=== PATIENT | female | born 1975 | race Caucasian/White ===

== ENCOUNTER 2016-11-13 23:37 | Emergency (ER) | payer OTHER ==
[~2016-11-13] VITALS: Ht 175.3 cm; Wt 72.6 kg
[~2016-11-13 23:37] MED LIST: ALBU17AE26 IH; ALPR0.2583 PO
--- NOTE | 2016-11-13 23:40 | NUR ---
Patient to ER bed 8 to gown for evaluation. Side rails up. Report given to Altagracia DARNELL.
[2016-11-13 23:45] VITALS: BP 135/88; PULSE 82; RESP 16; TEMP 97.8; O2SAT 98
--- NOTE | 2016-11-13 23:52 | NUR ---
Patient to ER C/O UTI symptoms, pain with urination /10, frequency and feeling hot. Patient states in the last 24 hours symptoms have been severe. AAOx4, unlabored breathing, no signs of acute distress.
--- NOTE | 2016-11-14 00:02 | NUR ---
ER MD Arevalo at bedside for evaluation
[2016-11-14 00:17] LABS: BILIRUBIN,URINE NEGATIVE (NEGATIVE); BLOOD, URINE 3+ (NEGATIVE); CLARITY/URINE CLOUDY (CLEAR); COLOR,URINE YELLOW (YELLOW); GLUCOSE,URINE NEGATIVE (NEGATIVE); KETONES,URINE NEGATIVE (NEGATIVE); LEUKOCYTE ESTERASE ,URINE 1+ (NEGATIVE); NITRITE, URINE NEGATIVE (NEGATIVE); PROTEIN URINE 2+ (NEGATIVE); UROBILINOGEN,URINE 0.2 (0.2-1.0)
[2016-11-14 00:35] LABS: BACTERIA,URINE MODERATE /HPF (None Seen); MUCUS,URINE None Seen /LPF (None Seen); RBC,URINE >100 /HPF (0-3); WBC,URINE 20-50 /HPF (0-3)
[2016-11-14 00:55] VITALS: BP 130/80; PULSE 82; RESP 16; TEMP 97.8; O2SAT 98
--- NOTE | 2016-11-14 00:55 | NUR ---
Patient given written and verbal discharge instructions and verbalizes understanding. ER MD discussed with patient the results and treatment provided. Patient in stable condition. ID arm band removed. Rx of levaquin, pyridium, and diflucan given. Patient educated on pain management and to follow up with PMD. Pain Scale 0/10 . Opportunity for questions provided and answered.
== END 2016-11-14 00:55 | disposition home or self-care (01) ==
LOC: SED 23:37
DX: N30.90 Cystitis, unspecified without hematuria (principal); J45.909 Unspecified asthma, uncomplicated; F41.9 Anxiety disorder, unspecified; F17.200 Nicotine dependence, unspecified, uncomplicated; Z88.1 Allergy status to other antibiotic agents
CPT/HCPCS: 81000-TC; 81025; 87086; 99284

== ENCOUNTER 2018-07-20 13:27 | Emergency (ER) | payer OTHER ==
[~2018-07-20] VITALS: Ht 175.3 cm; Wt 68.0 kg
[2018-07-20 13:27] VITALS: BP_SYST 151
[~2018-07-20 13:27] MED LIST changes: +ALPR0.25 PO; -ALPR0.2583 PO
[2018-07-20 14:02] LABS: WHITE BLOOD COUNT (AUTO) 8.4 K/uL (4.8-10.8)
[2018-07-20 14:03] LABS: BASOPHILS % (AUTO) 0.4 % (0.0-2.0); EOSINOPHILS % (AUTO) 1.5 % (0.0-4.0); HEMATOCRIT 37.3 % (36-48); HEMOGLOBIN 12.1 g/dL (12.0-16.0); LYMPHOCYTES # (AUTO) 2.6 K/uL (1.0-5.5); LYMPHOCYTES % (AUTO) 31.2 % (20.5-51.5); MEAN CORPUSCULAR HEMOGLOBIN 28 pg (27-31); MEAN CORPUSCULAR HGB CONC 33 % (32-36); MEAN CORPUSCULAR VOLUME 87 fL (79.0-98.0); MONOCYTES # (AUTO) 0.9 K/uL (0.0-1.0); MONOCYTES % (AUTO) 10.4 % (1.7-9.3); NEUTROPHILS # (AUTO) 4.8 K/uL (1.8-7.7); NEUTROPHILS % (AUTO) 56.5 % (40.0-70.0); PLATELET COUNT (AUTO) 342 K/uL (130-430); RED BLOOD CELL COUNT(AUTO) 4.29 MIL/uL (4.2-6.2); RED CELL DISTRIBUTION WIDTH 15.2 % (9.0-15.0)
[2018-07-20 14:04] LABS: EOSINOPHILS # (AUTO) 0.1 K/uL (0.0-0.4)
[2018-07-20 14:11] LABS: BILIRUBIN,URINE NEGATIVE (NEGATIVE); BLOOD, URINE 1+ (NEGATIVE); CLARITY/URINE CLEAR (CLEAR); COLOR,URINE YELLOW (YELLOW); GLUCOSE,URINE NEGATIVE (NEGATIVE); KETONES,URINE NEGATIVE (NEGATIVE); LEUKOCYTE ESTERASE ,URINE NEGATIVE (NEGATIVE); NITRITE, URINE NEGATIVE (NEGATIVE); PROTEIN URINE NEGATIVE (NEGATIVE); UROBILINOGEN,URINE 0.2 (0.2-1.0)
[2018-07-20 14:18] LABS: ANION GAP 3 (5-15); CALCIUM 8.5 mg/dL (8.4-11.0); CHLORIDE 103 mmol/L (98-107); CREATININE 0.72 mg/dL (0.55-1.30); GFR AFRICAN AMERICAN 113 mL/min (>90); GLUCOSE 115 mg/dL (70-99); POTASSIUM 3.4 mmol/L (3.5-5.1); SODIUM SERUM 141 mmol/L (136-145)
[2018-07-20 14:19] LABS: ALANINE AMINOTRANSFERASE 20 U/L (12-78); ALBUMIN 3.4 g/dL (3.4-4.8); ASPARTATE AMINOTRANSFERASE 17 U/L (10-37); TOTAL BILIRUBIN 0.1 mg/dL (0.0-1.0)
[2018-07-20 14:21] LABS: UREA NITROGEN, BLOOD 8 mg/dL (8-21)
[2018-07-20 14:26] LABS: BACTERIA,URINE RARE /HPF (None Seen); WBC,URINE 0-3 /HPF (0-3)
[2018-07-20] MEDS ORDERED: FAMOTIDINE PF 20 MG/2 ML VIAL IVP ONE (15:30)
[2018-07-20] MEDS ORDERED: PROMETHAZINE HCL 25 MG/ML AMP IVP ONE (15:30)
[2018-07-20] MEDS ORDERED: FAMOTIDINE PF 20 MG/2 ML VIAL ONE (15:31)
[2018-07-20 15:40] VITALS: BP_SYST 131
== END 2018-07-20 15:40 | disposition home or self-care (01) ==
LOC: SED 13:27
DX: K21.9 Gastro-esophageal reflux disease without esophagitis (principal); R07.89 Other chest pain; F41.9 Anxiety disorder, unspecified; R03.0 Elevated blood-pressure reading, without diagnosis of hypertension; J45.909 Unspecified asthma, uncomplicated; F17.200 Nicotine dependence, unspecified, uncomplicated; Z71.6 Tobacco abuse counseling; Z88.1 Allergy status to other antibiotic agents
CPT/HCPCS: 36415; 71046; 80053; 81000; 81025; 84484; 85025; 93005; 96374; 96375; 99285; J2550; J3490

== ENCOUNTER 2021-10-27 17:07 | Emergency (ER) | payer OTHER, SELFPAY ==
[~2021-10-27] VITALS: Ht 175.3 cm; Wt 80.7 kg
[2021-10-27 17:35] VITALS: BP_SYST 147
--- NOTE | 2021-10-27 17:35 | NUR ---
Pt to remain in the ER lobby until ER bed becomes available.
--- NOTE | 2021-10-27 17:38 | NUR ---
Pt AAO and ambulatory reporting that the urgent care sent her here for DVT. Pt had imaging done earlier today that confirmed right leg DVT. Pt has a h/o Asthma and HTN. Pt reports 8/10 pain scale.
--- NOTE | 2021-10-27 17:40 | NUR ---
Dr. Stark to lobby to assess.
--- NOTE | 2021-10-27 19:16 | NUR ---
Report to CARIE Brennan who will assume care.
--- NOTE | 2021-10-27 20:17 | NUR ---
Placed in room 4 . Placed on patient monitor, blood pressure machine and pulse oximeter. To gown for exam. Side rails up.
--- NOTE | 2021-10-27 20:46 | NUR ---
ER Dr. Stark at bedside examining patient.
[2021-10-27] MEDS ORDERED: ENOXAPARIN SODIUM 60 MG/0.6 ML SYRINGE SUBCUT ONE (21:00)
--- NOTE | 2021-10-27 21:20 | NUR ---
Patient given written and verbal discharge instructions and verbalizes understanding. ER MD discussed with patient the results and treatment provided. Patient in stable condition. ID arm band removed. Patient educated on pain management and to follow up with PMD. Pain Scale 6. Opportunity for questions provided and answered. Medication side effect fact sheet provided.
[2021-10-27 21:26] VITALS: BP_SYST 134
== END 2021-10-27 21:20 | disposition home or self-care (01) ==
LOC: SED 17:07
DX: I82.401 Acute embolism and thrombosis of unspecified deep veins of right lower extremity (principal); J45.909 Unspecified asthma, uncomplicated; Z88.1 Allergy status to other antibiotic agents
CPT/HCPCS: 93923; 96372; 99284; J1650